=== PATIENT | male | born 1965 | race Caucasian/White ===

== ENCOUNTER 2020-09-18 00:53 | Inpatient (IN) ==
--- NOTE | 2020-09-18 01:19 | Emergency Department Note ---
Impression & Plan Acute CVA (cerebrovascular accident), ICAO (internal carotid artery occlusion) ED Provider Note Name: SULEIMAN ONOFRE Age: 54 Sex: M Arrives Via: Walk-In Informant: Patient, brother ED Provider: Herve Calzada MD Chief Complaint: Right hand weakness Impression: Acute CVA Internal Carotid artery occlusion Medical Decision Makin yr old right handed male with no recent PMH who has been heavy smoker and has family history of CVA arrives with right hand weakness as primary issue, though some speech difficulty and mild right facial droop. This has been ongoing for the last 3 days and by time of arrival there is no indication for TPA. CT head obtained reveals areas of infarct, some of which could be acute. Labs unremarkable. EKG without afib. CXR looks OK. Patient feels ok, passed swallow study by nursing and able to swallow aspirin here without difficulty. After discussion with hospitalist they requested that he have CTA head/neck obtained while awaiting admission. CTA neck with right carotid occlusion and significant left occlusion. Hospitalist aware and will manage further. Prior Medical Record and Triage/Nursing Notes reviewed by Me Additional history obtained from chart and brother Differentials:Infection, dehydration, metabolic abnormality, hypo/hyperglycemia, electrolyte disturbance, anemia, hypoxia, cardiac sources, intracerebral event, toxicologic, neurologic, as well as other pathologies. Vital Signs: reviewed and remarkable for HTN Interventions: saline lock, asa 324mg po Labs:Reviewed and remarkable for no significant abnormalities Imaging:X ray results are stated below per my interpretation: Chest: 1 view: No infiltrate, no effusion, normal cardiac border. [facility] Radiologist interpretation reviewed by me: "CT HEAD: No acute intracranial hemorrhage, extra-axial fluid collection or mass-effect. Hypoattenuation within the left inferior cerebellar hemisphere likely represents encephalomalacia from a previous infarct. Small focus of hypoattenuation involving the cortical and subcortical white matter of the left posterior frontal lobe, which includes the precentral gyrus thought to represent a small infarct, age indeterminate, though possibly acute. There are additional smaller foci of hypoattenuation in the left parietal lobe which could represent additional small infarcts. An MRI of the brain is recommended to better specify. Radiologist: Tess De La O M.D." "CTA HEAD: The intracranial right internal carotid artery is nonopacified, consistent with an occlusion with only a trickle of flow visualized within the supraclinoid right ICA likely from contralateral flow. Atherosclerotic calcifications and luminal irregularity of the cavernous and supraclinoid left ICA results in critical stenosis at the cavernous segment. The bilateral MCAs and ACAs are patent. The posterior circulation is patent. Radiologist: Tess De La O M.D." "CTA NECK: Occlusion of the right internal carotid artery extending from its origin at the carotid bulb through the visualized intracranial component. The vertebral arteries are patent. Atherosclerotic calcifications and plaque at the left carotid bulb and proximal ICA resulting in less than 50% stenosis. Atherosclerotic plaque within the distal cervical segment at the skull base resultant approximately 50% stenosis. The left common carotid artery and the brachiocephalic artery shares a common origin, a normal anatomic variant. Atherosclerotic calcifications of the aortic arch and arch vessels. Emphysematous changes within the lung apices. Radiologist: Tess De La O M.D." EKG: Cardiac Monitoring: Per My Interpretation: Indication Stroke: NSR 91 bpm, qtc 428. No Ectopy. No Ischemia. Compared to EKG 12/13/19, no significant changes. Cardiac/Tele Monitoring: Cardiac Monitoring: An Order was placed for continuous cardiac monitoring. The monitor shows a rate of 90 with a normal sinus rhythm. Consults: Dr Aayush JAVIER Hospitalist requests CTA head/neck and will admit Plan: Disposition:Hospitalization. Condition: Good History of Present Illness:54 yr old male arrives for evaluation of right hand weakness. Patient notes that he had gradual onset right arm weakness, mild confusion, slurred speech throughout day on 09/14/20. Has been stable since that afternoon. Denies headache, neck pain, falls, syncope, urinary/bowel changes, leg swelling, chest pain, palpitations, shortness of breath nor other symptoms. Denies previous history of stroke/weakness issues. He has no history of recent accidents, trauma, nor cervical manipulation. He has been on no medications. Nothing makes weakness better nor worse. Admits long history of smoking. He does drink etoh daily but denies issues with shakes/withdrawal if he doesn't drink. ROS: See above HPI for pertinent positives & negatives. A total of 10 systems reviewed and were otherwise negative. Past Medical History:None Past Surgical History:Hernia repair, Tympanostomy tubes Family History:Brother with stroke Social History:Groundskeeping Maintenance Worker currently unemployed, + smoking, + etoh use (6 beers a night, no withdrawal symptoms) Home Medications:None Allergies:NKDA Vitals:Blood Pressure: 163/114, Pulse 80, RR 18, T 36.6C, O2 98% on RA Physical Exam: GENERAL: Patient is anxious appearing and in mild distress. EYES: No scleral icterus, unremarkable pupils. ENT: Mucous membranes moist, no nasal congestion. NECK: No masses appreciated, nomeningismus, trachea is midline. RESPIRATORY: No dyspnea. Clear to auscultation and equal bilaterally. No wheeze, no rhonchi. CARDIOVASCULAR: Regular rate and rhythm.No murmurs, rubs, gallops appreciated. GASTROINTESTINAL: Abdomen soft, non-tender, no peritonitis.Bowel sounds positive.No masses appreciated. BACK: No midline tenderness, no CVA tenderness EXTREMITIES: Normal motion all extremities, no cyanosis, no edema. NEUROLOGIC: Alert and oriented, mildly slurred speech with word finding issues, right facial droop overcome with voluntary muscles, right arm weakness worse distal with ataxia, otherwise unremarkable. SKIN: No rash, no jaundice, no diaphoresis. PSYCH: Appropriate GCS: 15 ED Course: Times/Reassessments: stable findings without complaints Herve Calzada MD Past Med/Surg History Medical History (Updated 09/18/20 @ 05:49 by Herve Calzada MD) No acute medical problems Surgical History History of hernia surgery Social History Smoking Status: Current every day smoker Tobacco Type: Cigarettes Cigarettes Per Day: 20; Hx Alcohol Use: Yes Alcohol type: beer Hx Substance Use: Yes Last Used Substance: Days (ago) Last Used Substance Other:: 3 days ago Beliefs That Will Affect Care: None Current Living Situation: Family Other Information That Helps Us Care for You: No Feels Safe at Home: Yes Safety Concerns: Feels Safe At This Time Assistive Devices: None Allergies Allergies Allergy/AdvReac Type Severity Reaction Status Date / Time No Known Allergies Allergy Unverified 09/18/20 01:09 Home Meds Home Medications Medication Instructions Recorded Confirmed No Known Home Medications 12/13/19 09/18/20 Results & Data (ED) Vital Signs Vital Signs - 24 hr 09/18/20 00:56 09/18/20 01:18 09/18/20 01:20 Temperature 36.6 C Temperature Source Temporal Artery Scan Pulse Rate 114 H 92 H 91 H Pulse Rate from SpO2 Sensor 92 H 92 H Respiratory Rate 18 24 23 Blood Pressure 163/114 H 157/101 H Blood Pressure Mean 130 119 Blood Pressure Position Sitting Pulse Oximetry 98 95 95 Oxygen Delivery Method Room Air Sepsis Recent Fever Within 48 Hours No Sepsis New/Unexplained Change in Mental Status No Sepsis Action Taken by Nursing No Action Required 09/18/20 01:34 09/18/20 01:37 09/18/20 01:40 Temperature Temperature Source Pulse Rate 95 H 92 H Pulse Rate from SpO2 Sensor 91 H 92 H Respiratory Rate 17 22 Blood Pressure Blood Pressure Mean Blood Pressure Position Pulse Oximetry 96 95 Oxygen Delivery Method Room Air Sepsis Recent Fever Within 48 Hours Sepsis New/Unexplained Change in Mental Status Sepsis Action Taken by Nursing 09/18/20 01:45 09/18/20 01:50 09/18/20 02:00 Temperature Temperature Source Pulse Rate 94 H 92 H 88 Pulse Rate from SpO2 Sensor 93 H 88 Respiratory Rate 22 20 21 Blood Pressure 164/98 H 165/101 H Blood Pressure Mean 120 122 Blood Pressure Position Pulse Oximetry 80 L 96 Oxygen Delivery Method Sepsis Recent Fever Within 48 Hours Sepsis New/Unexplained Change in Mental Status Sepsis Action Taken by Nursing 09/18/20 02:01 09/18/20 02:10 09/18/20 02:15 Temperature Temperature Source Pulse Rate 86 85 83 Pulse Rate from SpO2 Sensor 86 85 Respiratory Rate 22 20 19 Blood Pressure 157/98 H Blood Pressure Mean 117 Blood Pressure Position Pulse Oximetry 96 95 Oxygen Delivery Method Sepsis Recent Fever Within 48 Hours Sepsis New/Unexplained Change in Mental Status Sepsis Action Taken by Nursing 09/18/20 02:20 09/18/20 02:30 09/18/20 02:31 Temperature Temperature Source Pulse Rate 82 82 81 Pulse Rate from SpO2 Sensor Respiratory Rate 19 17 18 Blood Pressure 143/96 H Blood Pressure Mean 111 Blood Pressure Position Pulse Oximetry Oxygen Delivery Method Sepsis Recent Fever Within 48 Hours Sepsis New/Unexplained Change in Mental Status Sepsis Action Taken by Nursing 09/18/20 02:40 09/18/20 02:47 09/18/20 02:50 Temperature Temperature Source Pulse Rate 87 89 86 Pulse Rate from SpO2 Sensor 88 89 86 Respiratory Rate 21 25 H 21 Blood Pressure 177/111 H Blood Pressure Mean 133 Blood Pressure Position Pulse Oximetry 95 97 96 Oxygen Delivery Method Sepsis Recent Fever Within 48 Hours Sepsis New/Unexplained Change in Mental Status Sepsis Action Taken by Nursing 09/18/20 03:00 09/18/20 03:21 09/18/20 03:30 Temperature Temperature Source Pulse Rate 80 88 85 Pulse Rate from SpO2 Sensor 81 85 83 Respiratory Rate 19 22 21 Blood Pressure 151/95 H 170/101 H 162/106 H Blood Pressure Mean 113 124 124 Blood Pressure Position Pulse Oximetry 94 96 99 Oxygen Delivery Method Room Air Room Air Sepsis Recent Fever Within 48 Hours Sepsis New/Unexplained Change in Mental Status Sepsis Action Taken by Nursing Laboratory Data Result diagrams: 09/18/20 01:25 09/18/20 01:25 Lab Results 09/18/20 09/18/20 09/18/20 Range/Units 01:25 01:25 01:25 WBC 8.10 (4.8-10.8) K/uL RBC 5.18 (4.7-6.1) M/uL Hgb 15.8 (14.0-18.0) g/dL Hct 44.6 (42-52) % MCV 86.1 (80-100) fL MCH 30.5 (25-34) pg MCHC 35.4 (32-36) g/dL RDW Std Deviation 42.0 (36.4-46.3) fL RDW Coeff of Elliott 13.3 (11.5-14.5) % Plt Count 229 (130-400) K/uL MPV 9.6 (7.4-10.4) fL Immature Gran % (Auto) 0.4 % Neut % (Auto) 54.9 % Lymph % (Auto) 34.7 % Stark % (Auto) 7.4 % Eos % (Auto) 2.0 % Baso % (Auto) 0.6 % Neut # (Auto) 4.45 (1.4-6.5) K/uL Lymph # (Auto) 2.81 (1.2-3.4) K/uL Stark # (Auto) 0.60 H (0.11-0.59) K/uL Eos # (Auto) 0.16 (0-0.5) K/uL Baso # (Auto) 0.05 (0-0.2) K/uL Immature Gran # (Auto) 0.03 H (0.00-0.02) K/uL PT 10.4 (9.0-12.0) Seconds INR 1.0 (0.9-1.1) APTT 27.3 (21.0-31.0) Seconds PTT Ratio 1.0 Sodium (136-145) mmol/L Potassium (3.5-5.1) mmol/L Chloride (98-107) mmol/L Carbon Dioxide (21-32) mmol/L Anion Gap (3-11) BUN (7-18) mg/dl Creatinine (0.6-1.4) mg/dl Est Cr Clr Drug Dosing ml/min Est GFR ( Amer) ml/min Est GFR (Non-Af Amer) ml/min BUN/Creatinine Ratio (10-20) Glucose (70-99) mg/dl Calcium (8.5-10.1) mg/dl Magnesium (1.8-2.4) mg/dl Total Bilirubin (0.2-1) mg/dl AST (15-37) U/L ALT (12-78) U/L Alkaline Phosphatase (45-117) U/L Troponin I (0-0.045) ng/ml Total Protein (6.4-8.2) gm/dl Albumin (3.4-5.0) gm/dl Globulin (2.5-4.0) gm/dl Albumin/Globulin Ratio (0.9-2) COVID-19 Eval Order SARS-CoV-2 (PCR) (Negative) Blood Type AB Negative Antibody Screen NEGATIVE 09/18/20 09/18/20 09/18/20 Range/Units 01:25 01:37 01:37 WBC (4.8-10.8) K/uL RBC (4.7-6.1) M/uL Hgb (14.0-18.0) g/dL Hct (42-52) % MCV (80-100) fL MCH (25-34) pg MCHC (32-36) g/dL RDW Std Deviation (36.4-46.3) fL RDW Coeff of Elliott (11.5-14.5) % Plt Count (130-400) K/uL MPV (7.4-10.4) fL Immature Gran % (Auto) % Neut % (Auto) % Lymph % (Auto) % Stark % (Auto) % Eos % (Auto) % Baso % (Auto) % Neut # (Auto) (1.4-6.5) K/uL Lymph # (Auto) (1.2-3.4) K/uL Stark # (Auto) (0.11-0.59) K/uL Eos # (Auto) (0-0.5) K/uL Baso # (Auto) (0-0.2) K/uL Immature Gran # (Auto) (0.00-0.02) K/uL PT (9.0-12.0) Seconds INR (0.9-1.1) APTT (21.0-31.0) Seconds PTT Ratio Sodium 135 L (136-145) mmol/L Potassium 4.1 (3.5-5.1) mmol/L Chloride 103 (98-107) mmol/L Carbon Dioxide 27 (21-32) mmol/L Anion Gap 5.0 (3-11) BUN 27 H (7-18) mg/dl Creatinine 1.38 (0.6-1.4) mg/dl Est Cr Clr Drug Dosing 62.9 ml/min Est GFR ( Amer) 66.7 ml/min Est GFR (Non-Af Amer) 57.6 ml/min BUN/Creatinine Ratio 19.4 (10-20) Glucose 141 H (70-99) mg/dl Calcium 8.8 (8.5-10.1) mg/dl Magnesium 2.0 (1.8-2.4) mg/dl Total Bilirubin 0.2 (0.2-1) mg/dl AST 12 L (15-37) U/L ALT 27 (12-78) U/L Alkaline Phosphatase 58 (45-117) U/L Troponin I < 0.015 (0-0.045) ng/ml Total Protein 7.0 (6.4-8.2) gm/dl Albumin 3.6 (3.4-5.0) gm/dl Globulin 3.4 (2.5-4.0) gm/dl Albumin/Globulin Ratio 1.1 (0.9-2) COVID-19 Eval Order Covid19 at [facility] SARS-CoV-2 (PCR) NEGATIVE (Negative) Blood Type Antibody Screen Administered Medications Discontinued Medications Aspirin (Aspirin Chew 324 Mg) 324 mg PO NOW STA Stop: 09/18/20 02:30 Last Admin: 09/18/20 02:40 Dose: 324 mg Documented by: [id number] Ioversol (Optiray 350 500ml) 110 ml IV ONCE ONE Stop: 09/18/20 03:12 Last Admin: 09/18/20 03:13 Dose: 110 ml Documented by: [id number] Discharge Plan Visit Data Chief Complaint: Stroke/CVA Symptoms Stated Complaint: POSSIBLE SX, RT SIDED WEAKNESS, SLURRED SPEACH ED Provider: Herve Calzada Discharge Problem: Acute CVA (cerebrovascular accident), ICAO (internal carotid artery occlusion) Patient Disposition: Admitted As Inpatient Discharge Instructions Interventions: ED Discharge Assessment Last Done: 09/18/20 04:27 Discharge Problem: ICAO (internal carotid artery occlusion) Qualifiers: Laterality: right Qualified Code(s): I65.21 - Occlusion and stenosis of right carotid artery
[2020-09-18 01:34] LABS: Basophils # (auto) 0.05 K/uL (0-0.2); Basophils % (auto) 0.6 %; Eosinophils # (auto) 0.16 K/uL (0-0.5); Hematocrit (blood only) 44.6 % (42-52); Hemoglobin 15.8 g/dL (14.0-18.0); Immature Granulocytes # (auto) 0.03 K/uL (0.00-0.02); Immature Granulocytes % (auto) 0.4 %; Lymphocytes # (auto) 2.81 K/uL (1.2-3.4); Lymphocytes % (auto) 34.7 %; Mean Corpuscular Hemoglobin 30.5 pg (25-34); Mean Corpuscular Hgb Conc 35.4 g/dL (32-36); Mean Corpuscular Volume 86.1 fL (80-100); Mean Platelet Volume 9.6 fL (7.4-10.4); Monocytes % (auto) 7.4 %; Neutrophils # (auto) 4.45 K/uL (1.4-6.5); Neutrophils % (auto) 54.9 %; Platelet Count 229 K/uL (130-400); RDW Coefficient of Variation 13.3 % (11.5-14.5); Red Blood Count 5.18 M/uL (4.7-6.1)
[2020-09-18 01:45] LABS: Partial Thromboplastin Time 27.3 Seconds (21.0-31.0); Prothrombin Time 10.4 Seconds (9.0-12.0)
[2020-09-18 01:54] LABS: Alanine Aminotransferase 27 U/L (12-78); Albumin Level 3.6 gm/dl (3.4-5.0); Aspartate Aminotransferase 12 U/L (15-37); BUN Creatinine Ratio 19.4 (10-20); Blood Urea Nitrogen 27 mg/dl (7-18); Calcium 8.8 mg/dl (8.5-10.1); Carbon Dioxide 27 mmol/L (21-32); Chloride 103 mmol/L (98-107); Creatinine Clr Calc Pharmacy 62.9 ml/min; Est GFR (African American) 66.7 ml/min; Est GFR (Non-African American) 57.6 ml/min; Glucose 141 mg/dl (70-99); Potassium 4.1 mmol/L (3.5-5.1); Sodium 135 mmol/L (136-145)
[2020-09-18 01:59] LABS: Albumin Globulin Ratio 1.1 (0.9-2); Alkaline Phosphatase 58 U/L (45-117); Bilirubin,Total 0.2 mg/dl (0.2-1); Globulin 3.4 gm/dl (2.5-4.0); Troponin I < 0.015 ng/ml (0-0.045)
[2020-09-18] MEDS ORDERED: ASPIRIN CHEW 324 MG PO STA (02:29)
--- NOTE | 2020-09-18 03:07 | History & Physical Report ---
Date of Service September 18, 2020 Assessment & Plan (1) Stroke: John Fabian is a 54-year-old male with only past medical history significant for smoking, and methamphetamine use; who presented for concern of 4 days of weakness of right upper extremity. Stroke: -Given timeline of presentation to ED with symptoms, no code stroke alert called patient did not receive TPA -CT head demonstrating no acute intracranial hemorrhage, hypoattenuation within the left inferior cerebellar hemisphere, small focus of hypoattenuation involving cortical and subcortical white matter representing age-indeterminate infarct -CTA head/neck demonstrating intracranial right internal carotid artery consistent with occlusion with minimal flow likely from contralateral flow, critical stenosis of the supraclinoid left ICA -MRI ordered -Echo ordered given both stroke and methamphetamine use -Lipids/A1c in a.m. -Started on atorvastatin 40 mg daily -No BP or IV to right upper extremity given stroke deficits -Likely will need antiplatelet medication going forward given extent of carotid artery disease -Neurology consulted as part of stroke protocol -Labetalol and hydralazine available q4h PRN for SBP >180 Smoker/methamphetamine use: -Provided smoking cessation education and counseling -Advised stoppage of methamphetamine use Diet: Regular CODE STATUS: Full code (2) Smoker: (3) Methamphetamine abuse: History of Present Illness Primary Care Provider: NO PCP John Fabian is a 54-year-old male with only past medical history significant for smoking, and methamphetamine use; who presented for concern of 4 days of weakness of right upper extremity. Had sudden onset of inability to utilize his right hand approximately 4 days ago, initially thought nothing of it did not present to the emergency room at that time. Then as this continued and persisted without much improvement decided it was not time to for him to be evaluated. Has very minimal movement of the right hand that has been continued at this time but otherwise has function of right elbow and shoulder without change from his normal. Has no difficulty with vision or visual field losses. No lightheadedness, no dizziness, no nausea, no other muscular weaknesses, no falls, no chest pain, no shortness of breath. Endorses last use of methamphetamines 2 days ago, and is a longtime smoker. Is right-handed, and works with his hands for living. Allergies Allergy/AdvReac Type Severity Reaction Status Date / Time No Known Allergies Allergy Unverified 09/18/20 01:09 Home Medications Medication Instructions Recorded Confirmed Type No Known Home Medications 12/13/19 09/18/20 History Past Med/Surg History Medical History No acute medical problems Surgical History History of hernia surgery Social History Smoking Status: Current every day smoker Tobacco Type: Cigarettes Cigarettes Per Day: 20; Hx Alcohol Use: Yes Alcohol type: beer Hx Substance Use: Yes Last Used Substance: Days (ago) Last Used Substance Other:: 3 days ago Beliefs That Will Affect Care: None Current Living Situation: Family Other Information That Helps Us Care for You: No Feels Safe at Home: Yes Safety Concerns: Feels Safe At This Time Assistive Devices: None Review of Systems Review of Systems: All systems reviewed & are unremarkable except as noted in HPI & below Physical Exam Constitutional: WD/WN, vitals as above Eyes: PERRL, conjunctivae normal, anicteric sclerae Respiratory: normal respiratory effort, lungs clear to auscultation Auscultation: no crackles, no rales, no rhonchi and no wheezes Cardiovascular: Rate/Rhythm: regular rate and regular rhythm Heart Sounds: no gallop, no murmur and no cardiac rub Vessels: normal peripheral pulses; no JVD Extremities: no edema Gastrointestinal (Abdomen): Inspection/Auscultation: normal bowel sounds; abdomen not distended Percussion/Palpation: abdomen soft; abdomen nontender and no guarding Musculoskeletal: Extremities: + abnormal strength and + limited ROM of upper extremity Right (hand) 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, finger abduction/adduction/flexion/extension, wrist flexion/extension/radial deviation/ulnar deviation Skin: no rashes, warm and dry Neurologic: deep tendon reflexes 2+ bilaterally, normal sensation to monofilament, + focal motor deficit and awake Cranial Nerves: PERRL, normal accommodation, EOM intact bilaterally, normal facial strength, tongue midline, normal hearing, able to rotate head bilaterally, able to elevate shoulders bilaterally, no nystagmus and symmetric palate elevation Psychiatric: Orientation: alert and oriented x 3 Results & Data Results & Data ([facility]) Vital Signs (Past 12 Hours) Vital Signs Temp Pulse Resp BP Pulse Ox 09/18/20 02:50 86 21 96 09/18/20 02:47 89 25 H 177/111 H 97 09/18/20 02:40 87 21 95 09/18/20 02:31 81 18 09/18/20 02:30 82 17 143/96 H 09/18/20 02:20 82 19 09/18/20 02:15 83 19 157/98 H 09/18/20 02:10 85 20 95 09/18/20 02:01 86 22 96 09/18/20 02:00 88 21 165/101 H 96 09/18/20 01:50 92 H 20 80 L 09/18/20 01:45 94 H 22 164/98 H 09/18/20 01:40 92 H 22 95 09/18/20 01:37 95 H 17 96 09/18/20 01:20 91 H 23 95 09/18/20 01:18 92 H 24 157/101 H 95 09/18/20 00:56 36.6 C 114 H 18 163/114 H 98 Laboratory Results 09/18/20 09/18/20 09/18/20 Range/Units 01:37 01:37 01:25 WBC (4.8-10.8) K/uL RBC (4.7-6.1) M/uL Hgb (14.0-18.0) g/dL Hct (42-52) % MCV (80-100) fL MCH (25-34) pg MCHC (32-36) g/dL RDW Std Deviation (36.4-46.3) fL RDW Coeff of Elliott (11.5-14.5) % Plt Count (130-400) K/uL MPV (7.4-10.4) fL Immature Gran % (Auto) % Neut % (Auto) % Lymph % (Auto) % [place] % (Auto) % Eos % (Auto) % Baso % (Auto) % Neut # (Auto) (1.4-6.5) K/uL Lymph # (Auto) (1.2-3.4) K/uL [place] # (Auto) (0.11-0.59) K/uL Eos # (Auto) (0-0.5) K/uL Baso # (Auto) (0-0.2) K/uL Immature Gran # (Auto) (0.00-0.02) K/uL PT (9.0-12.0) Seconds INR (0.9-1.1) APTT (21.0-31.0) Seconds PTT Ratio Sodium 135 L (136-145) mmol/L Potassium 4.1 (3.5-5.1) mmol/L Chloride 103 (98-107) mmol/L Carbon Dioxide 27 (21-32) mmol/L Anion Gap 5.0 (3-11) BUN 27 H (7-18) mg/dl Creatinine 1.38 (0.6-1.4) mg/dl Est Cr Clr Drug Dosing 62.9 ml/min Est GFR ( Amer) 66.7 ml/min Est GFR (Non-Af Amer) 57.6 ml/min BUN/Creatinine Ratio 19.4 (10-20) Glucose 141 H (70-99) mg/dl Calcium 8.8 (8.5-10.1) mg/dl Magnesium 2.0 (1.8-2.4) mg/dl Total Bilirubin 0.2 (0.2-1) mg/dl AST 12 L (15-37) U/L ALT 27 (12-78) U/L Alkaline Phosphatase 58 (45-117) U/L Troponin I < 0.015 (0-0.045) ng/ml Total Protein 7.0 (6.4-8.2) gm/dl Albumin 3.6 (3.4-5.0) gm/dl Globulin 3.4 (2.5-4.0) gm/dl Albumin/Globulin Ratio 1.1 (0.9-2) COVID-19 Eval Order Covid19 at [facility] SARS-CoV-2 (PCR) NEGATIVE (Negative) Blood Type Antibody Screen 09/18/20 09/18/20 09/18/20 Range/Units 01:25 01:25 01:25 WBC 8.10 (4.8-10.8) K/uL RBC 5.18 (4.7-6.1) M/uL Hgb 15.8 (14.0-18.0) g/dL Hct 44.6 (42-52) % MCV 86.1 (80-100) fL MCH 30.5 (25-34) pg MCHC 35.4 (32-36) g/dL RDW Std Deviation 42.0 (36.4-46.3) fL RDW Coeff of Elliott 13.3 (11.5-14.5) % Plt Count 229 (130-400) K/uL MPV 9.6 (7.4-10.4) fL Immature Gran % (Auto) 0.4 % Neut % (Auto) 54.9 % Lymph % (Auto) 34.7 % [place] % (Auto) 7.4 % Eos % (Auto) 2.0 % Baso % (Auto) 0.6 % Neut # (Auto) 4.45 (1.4-6.5) K/uL Lymph # (Auto) 2.81 (1.2-3.4) K/uL [place] # (Auto) 0.60 H (0.11-0.59) K/uL Eos # (Auto) 0.16 (0-0.5) K/uL Baso # (Auto) 0.05 (0-0.2) K/uL Immature Gran # (Auto) 0.03 H (0.00-0.02) K/uL PT 10.4 (9.0-12.0) Seconds INR 1.0 (0.9-1.1) APTT 27.3 (21.0-31.0) Seconds PTT Ratio 1.0 Sodium (136-145) mmol/L Potassium (3.5-5.1) mmol/L Chloride (98-107) mmol/L Carbon Dioxide (21-32) mmol/L Anion Gap (3-11) BUN (7-18) mg/dl Creatinine (0.6-1.4) mg/dl Est Cr Clr Drug Dosing ml/min Est GFR ( Amer) ml/min Est GFR (Non-Af Amer) ml/min BUN/Creatinine Ratio (10-20) Glucose (70-99) mg/dl Calcium (8.5-10.1) mg/dl Magnesium (1.8-2.4) mg/dl Total Bilirubin (0.2-1) mg/dl AST (15-37) U/L ALT (12-78) U/L Alkaline Phosphatase (45-117) U/L Troponin I (0-0.045) ng/ml Total Protein (6.4-8.2) gm/dl Albumin (3.4-5.0) gm/dl Globulin (2.5-4.0) gm/dl Albumin/Globulin Ratio (0.9-2) COVID-19 Eval Order SARS-CoV-2 (PCR) (Negative) Blood Type AB Negative Antibody Screen NEGATIVE Diagnostic Findings CT HEAD: No acute intracranial hemorrhage, extra-axial fluid collection or mass-effect. Hypoattenuation within the left inferior cerebellar hemisphere likely represents encephalomalacia from a previous infarct. Small focus of hypoattenuation involving the cortical and subcortical white matter of the left posterior frontal lobe, which includes the precentral gyrus thought to represent a small infarct, age indeterminate, though possibly acute. There are additional smaller foci of hypoattenuation in the left parietal lobe which could represent additional small infarcts. An MRI of the brain is recommended to better specify. Radiologist: Tess De La O M.D. CTA HEAD: The intracranial right internal carotid artery is nonopacified, consistent with an occlusion with only a trickle of flow visualized within the supraclinoid right ICA likely from contralateral flow. Atherosclerotic calcifications and luminal irregularity of the cavernous and supraclinoid left ICA results in critical stenosis at the cavernous segment. The bilateral MCAs and ACAs are patent. The posterior circulation is patent. Radiologist: Tess De La O M.D. CTA NECK: Occlusion of the right internal carotid artery extending from its origin at the carotid bulb through the visualized intracranial component. The vertebral arteries are patent. Atherosclerotic calcifications and plaque at the left carotid bulb and proximal ICA resulting in less than 50% stenosis. Atherosclerotic plaque within the distal cervical segment at the skull base resultant approximately 50% stenosis. The left common carotid artery and the brachiocephalic artery shares a common origin, a normal anatomic variant. Atherosclerotic calcifications of the aortic arch and arch vessels. Emphysematous changes within the lung apices. Radiologist: Tess Abadie, M.D. Supervising Physician Co-Signing Physician Notes Attending addendum: I have physically seen this patient, have supervised the medical residents activities, and agree with the H&P unless as otherwise noted. Assessment and Plan: Right-sided CVA- Symptoms began 4 days prior to arrival, therefore not candidate for TPA Stroke without TPA order set CT head shows old left inferior cerebellar stroke. Age-indeterminate infarcts involving cortical and subcortical white matter CTA head and neck: Occlusion of right ICA. Critical stenosis of supraclinoid left ICA MRI brain ordered and pending Complete echocardiogram to be performed in a.m. Check a fasting liver panel and hemoglobin A1c Start high-dose statin atorvastatin 40 mg daily Consult neurology Tobacco use/methamphetamine use- Counseling for above Remaining orders and notations as noted Resident Activity Tracking Resident Involvement: Resident Care Provided Care Provided: Adult [facility] Medicine
[2020-09-18] MEDS ORDERED: OPTIRAY 350 500ml IV ONE (03:11)
[2020-09-18] MEDS ORDERED: hydrALAZINE HCL 20 MG/ML VIAL IV PRN ×2 (03:40→04:55)
[2020-09-18] MEDS ORDERED: LABETALOL HCL IV 5 MG/ML 20ML IV PRN ×2 (03:40→04:55)
[2020-09-18] MEDS ORDERED: PHARMACIST DISCHARGE MED REC CONSULT PRN (04:46)
[2020-09-18] MEDS ORDERED: ALUMINUM/MAGNESIUM SUSP 30 ML UDC PO PRN (04:46)
[2020-09-18] MEDS ORDERED: ACETAMINOPHEN 325 MG TAB PO PRN (04:46)
[2020-09-18] MEDS ORDERED: MAGNESIUM HYDROXIDE SUSP 30 ML UDC PO PRN (04:46)
[2020-09-18] MEDS ORDERED: ONDANSETRON INJ 2 MG/ML 2 ML VIAL IV PRN (04:46)
[2020-09-18] MEDS ORDERED: POLYETHYLENE (MIRALAX) 17 GM PACK PO PRN (04:46)
--- NOTE | 2020-09-18 07:09 | CT Scan Report ---
CTA ANGIOGRAPHY OF THE HEAD CLINICAL HISTORY: stroke COMPARISON STUDY: Head CT September 18, 2020. TECHNIQUE: Helical axial images of the head were obtained following uneventful intravenous administr ation of 110 cc of Optiray. Sagittal and coronal reconstructions were viewed as well as maximal inten sity projections on an independent 3-D workstation. Automated exposure control was utilized for the study. A dose lowering technique was utilized adhering to the principles of ALARA. FINDINGS: Encephalomalacia within the inferior left cerebellar hemisphere favors old infarct. Age ind eterminate infarcts within the left parietal frontal lobes are better depicted on the head CT perform ed earlier today. No acute intracranial hemorrhage, midline shift or mass effect is present. There ar e postoperative findings within the sinuses. The right internal carotid artery is occluded with dista l reconstitution at the level of the right supraclinoid ICA which is diminutive. The right M1, M2, A1 and A2 segments are patent. There is extensive plaque within visualized portions of the left interna l carotid artery with multifocal stenoses. There is severe critical stenosis of the left cavernous ca rotid. The left M1, M2, A1 and A2 segments are patent. No abrupt cut off is identified within the pos terior intracranial circulation. There is no intracranial aneurysm. IMPRESSION: 1. Extensive atherosclerotic plaque. Occluded right internal carotid artery with reconstitution at th e level of the right supraclinoid ICA which is diminutive. Patent bilateral M1, M2, A1 and A2 branche s. 2. Severe/critical stenosis of the left cavernous carotid due to plaque. 3. No intracranial aneurysm. ACT 112: Negative or not required by law. Electronically signed by: Adebayo Metzger M.D. 09/18/2020 7:07 AM
--- NOTE | 2020-09-18 07:19 | CT Scan Report ---
HEAD CT NONCONTRAST CT DOSE: 537.48 mGy.cm HISTORY: Stroke Like Symptoms TECHNIQUE: Multiaxial CT images of the head were performed without the use of intravenous contrast. A utomated exposure control was utilized for this study. A dose lowering technique was utilized adheri ng to the principles of ALARA. Comparison: None. Findings: The paranasal sinuses and mastoid air cells are clear. The calvarium and skull base are int act. There is no mass, hematoma, or midline shift. Focal area of encephalomalacia within the left inf erior cerebellar hemisphere likely secondary to an old infarct. There is an old lacunar infarct withi n the right cerebellar hemisphere. Small foci of hypoattenuation involving the cortical and subcortic al white matter of the left posterior frontal lobe and left parietal lobe suggestive of acute to suba cute infarcts. Impression: 1. Small foci of hypoattenuation within the left posterior frontal lobe and left parietal lobe sugges tive of acute to subacute infarcts. 2. Old cerebellar infarcts. ACT 112: Negative or not required by law. Electronically signed by: Tavo Fonseca M.D. 09/18/2020 7:17 AM
--- NOTE | 2020-09-18 07:24 | CT Scan Report ---
NECK CTA HISTORY: Stroke symptoms. TECHNIQUE: Multiaxial CT images of the neck were performed following the intravenous administration o f contrast to evaluate the major cervical vessels. Maximum intensity projection images were also obta ined. All measurements were calculated based on NASCET criteria. A dose lowering technique was utili zed adhering to the principles of ALARA. COMPARISON STUDY: None. FINDINGS: The aortic arch is patent. Focal narrowing of approximately 40% within the proximal left gupta bclavian artery due to the atherosclerotic plaque. Mild focal narrowing within the proximal right maggie tebral artery at the C6-C7 levels. The left vertebral artery is widely patent. There is complete occl usion of the right internal carotid artery. Moderate stenosis of approximately 70% at the takeoff of the left internal carotid artery. There is also 70% focal stenosis at the distal cervical left internet ecommerce specialist al carotid artery. There is also severe/critical stenosis within the left cavernous carotid. This is better appreciated on the same day head CTA. IMPRESSION: 1. Complete occlusion of the right internal carotid artery. 2. Mild narrowing within the proximal right vertebral artery. 3. Focal areas of up to 70% stenosis at the takeoff of the left internal carotid artery and at the di stal left cervical internal carotid artery near the skull base. There is also high-grade/critical anand nosis within the cavernous segment left internal carotid artery which is better appreciated on the sa day head CTA. ACT 112: Negative or not required by law. Electronically signed by: Tavo Fonseca M.D. 09/18/2020 7:22 AM
--- NOTE | 2020-09-18 09:04 | XRay Report ---
ORBIT RADIOGRAPHS 3 VIEWS HISTORY: pre-MRI screening. COMPARISON: CTA of the head September 18, 2020. FINDINGS: There are no radiopaque foreign bodies identified within the orbits. IMPRESSION: No radiopaque foreign bodies identified within the orbits. ACT 112: Negative or not required by law. Electronically signed by: Adebayo Metzger M.D. 09/18/2020 9:02 AM
[2020-09-18] MEDS: ATORVASTATIN 40 MG TAB PO SCH (09:18)
--- NOTE | 2020-09-18 10:04 | Neurology Consultation ---
Date of Consultation September 18, 2020 Assessment & Plan (1) Acute CVA (cerebrovascular accident): Probable acute ischemic stroke involving the left cerebral hemisphere, likely left MCA territory, resulting in a mild to moderate right hemiparesis, face and arm greater than leg. Has notable loss of land appraiser strength for the right hand. Very mild dysarthria, no aphasia. Patient has significant extracranial and intracranial atherosclerotic disease with a complete occlusion of the right internal carotid artery and up to 70% stenosis at the takeoff of the left internal carotid artery, distal left cervical internal carotid artery, and high- grade/critical stenosis within the cavernous segment of the left internal carotid artery. Patient brain MRI is pending. He does have evidence of several chronic cerebellar infarcts as well, but without obvious clinical deficits. Patient continues to abuse methamphetamine. His blood pressure has been notably elevated. Cigarette smoking is also a notable risk factor for this patient. Otherwise, his past medical history is largely unknown as he does not see physicians regularly. Would recommend completion of brain MRI to further characterize the suspected acute ischemic infarct to the left cerebral hemisphere. Would recommend a fasting lipid panel. Continue medical management of hypertension. Systolic blood pressure goal 140 to 160 mmHg acutely. Given degree of observed atherosclerotic disease, patient should be on a statin, agree with Lipitor as started. Also agree with aspirin 81 mg/day as started. Abstinence from methamphetamines was stressed. Patient will likely require additional support/counseling. We will check a transthoracic echocardiogram with bubble study. There would be no surgical intervention for the completely occluded right internal carotid artery. However, the left internal carotid artery does have multifocal severe stenosis. However, the lesions near the skull base and within the cavernous segment of the left internal carotid artery may not be addressable with endarterectomy. Stenting may be an option for this patient. Would be worthwhile to obtain a vascular surgery consultation for an opinion regarding this issue. He will likely need a referral to a tertiary center. Would also consider obtaining mobile cardiac outpatient telemetry. History of Present Illness Reason for Consultation: Stroke Requesting Physician: Duglas Heredia MD Attending Physician: Ness Lenz MD History of Present Illness The patient is a 54-year-old male with a history of tobacco and methamphetamine abuse who presented to the emergency department yesterday with a complaint of right hand weakness that began 3 days prior and has been fairly persistent. Patient is also aware of mild droopiness of the right lower face and also complains of some mild associated change in his voice or speech. He is right- handed. No difficulty with word finding or language comprehension, however. Denies experiencing any weakness or difficulty with the right leg. Reports significant land appraiser weakness involving the right hand. No associated sensory loss. Again, symptoms have been persistent for the past 3 days, fairly stable without significant improvement or worsening. Patient has undergone initial imaging in the emergency department including CT of the head and CT angiography of the head and neck. The head CT reveals a chronic infarct within both the left and right cerebellar hemisphere as well as possible subacute infarcts within the posterior left frontal lobe and left parietal lobe. CTA of the head reveals extensive atherosclerotic plaque with an occluded right internal carotid artery, with reconstitution at the level of the right supraclinoid internal carotid artery which is diminutive. There is severe/critical stenosis of the left cavernous carotid due to plaque. CTA of the neck reveals complete occlusion of the right internal carotid artery, mild narrowing of the proximal right vertebral artery, and focal areas of up to 70% stenosis at the takeoff of the left internal carotid artery and at the distal left cervical internal carotid artery near the skull base. The high-grade left cavernous segment stenosis was again seen. I reviewed the images as well as the radiologist interpretation of these tests and agree. The patient denies a prior history of stroke. He does not take any prescription medications as an outpatient. Family history noncontributory Allergies Allergy/AdvReac Type Severity Reaction Status Date / Time No Known Allergies Allergy Unverified 09/18/20 01:09 Home Medications Medication Instructions Recorded Confirmed Type No Known Home Medications 12/13/19 09/18/20 History Patient History Medical History No acute medical problems Surgical History History of hernia surgery Social History Smoking Status: Current every day smoker Tobacco Type: Cigarettes Cigarettes Per Day: 20; Hx Alcohol Use: Yes Alcohol type: beer Hx Substance Use: Yes Last Used Substance: Days (ago) Last Used Substance Other:: 3 days ago Beliefs That Will Affect Care: None Current Living Situation: Family Other Information That Helps Us Care for You: No Feels Safe at Home: Yes Safety Concerns: Feels Safe At This Time Assistive Devices: None Review of Systems Constitutional: no fever and no chills Eyes: no blind spots and no diplopia Ear, Nose, Mouth, Throat: no hearing loss Respiratory: no cough and no dyspnea Cardiovascular: no chest pain and no palpitations Gastrointestinal: no nausea and no vomiting Genitourinary: no dysuria Musculoskeletal: no myalgia Integumentary: no rash and no lesions Neurologic: as per Subjective / HPI and + localized weakness; no tremor(s) and no headache(s) Psychiatric: no depression and no anxiety Hematologic / Lymphatic: no easy bleeding and no easy bruising Exam (Neuro) Constitutional: well developed and well nourished; no acute distress Eyes: normal visual allred by confrontation, PERRL, normal accommodation and EOM intact bilaterally; no fundoscopic abnormality, no nystagmus and no papilledema Cardiovascular: Vessels: normal carotid upstroke; no carotid bruit Neurologic: Oriented to:: Person, Place and Time Memory: Short Term Intact and Remote Intact Attention: Span Intact and Concentration Intact Language: Naming Objects and Repeating Phrases Speech Fluency: Dysarthria (Slight dysarthria noted) Speech Aphasia: negative Aphasia Fund of Knowledge: Current Events, Past History and Vocabulary Cranial Nerves: Normal II (Visual allred full to confrontation, visual acuity normal), III, IV, (Pupils equal round reactive to light and accommodation, eye movements normal), V (Facial sensation intact), VIII (Hearing intact), IX, X (Palate elevates to midline), XI (Shoulder shrug intact) and XII (Tongue protrudes to midline); Abnorm VII (There is mild weakness of the right lower facial musculature) Motor Strength: Normal Lower Extremities and Pronator Drift Laterality: Right; negative Normal Upper Extremities (Mild to moderate weakness of the right upper extremity noted with at least moderate weakness of land appraiser strength for the right hand. Patient fixes on the right with arm roll.) Motor Tone: Normal Lower Extremities and Normal Upper Extremities Muscle Bulk/Involuntary Movements: No Involuntary Movements; negative Muscle Atrophy Sensation: Light Touch In tact, Pain/Temperature Intact, Vibration Intact and Proprioception Intact Coordination: Normal and Finger-Nose Abnormal Laterality: Right; negative Limited Balance, Dysdiadochokinesia and Heel-Crowell Abnormal Deep Tendon Reflexes: Rt Triceps: 3+, Lt Triceps: 2+, Rt Biceps: 3+, Lt Biceps: 2+, Rt Brachioradialis: 3+, Lt Brachioradialis: 2+, Rt Patellar: 2+, Lt Patellar: 2+, Rt Ankle: 2+ and Lt Ankle: 2+ Special Tests: negative Babinski Present Gait: Normal Station and Gait Results & Data ([facility]) Vital Signs (Past 12 Hours) Vital Signs Temp Pulse Pulse Resp BP BP Pulse Ox 09/18/20 07:26 36.5 C 78 19 164/95 H 95 09/18/20 04:48 36.4 C L 86 18 175/96 H 96 09/18/20 04:00 79 20 152/94 H 96 09/18/20 03:30 85 21 162/106 H 99 09/18/20 03:21 88 22 170/101 H 96 09/18/20 03:00 80 19 151/95 H 94 09/18/20 02:50 86 21 96 09/18/20 02:47 89 25 H 177/111 H 97 09/18/20 02:40 87 21 95 09/18/20 02:31 81 18 09/18/20 02:30 82 17 143/96 H 09/18/20 02:20 82 19 09/18/20 02:15 83 19 157/98 H 09/18/20 02:10 85 20 95 09/18/20 02:01 86 22 96 09/18/20 02:00 88 21 165/101 H 96 09/18/20 01:50 92 H 20 80 L 09/18/20 01:45 94 H 22 164/98 H 09/18/20 01:40 92 H 22 95 09/18/20 01:37 95 H 17 96 09/18/20 01:20 91 H 23 95 09/18/20 01:18 92 H 24 157/101 H 95 09/18/20 00:56 36.6 C 114 H 18 163/114 H 98 Laboratory Results WBC 8.10, hemoglobin 15.8, hematocrit 44.6, platelet count 229, sodium 135, potassium 4.1, BUN 27, creatinine 1.38, glucose 141, calcium 8.8, magnesium 2.0, AST 12, ALT 27, troponin less than 0.015 Diagnostic Findings Imaging including CT of the head and CT angiography of the head and neck are as described in the history of present illness. I reviewed the images as well as the radiologist's interpretation of these tests. An electrocardiogram reveals a normal sinus rhythm, possible left atrial enlargement, 91 bpm. Coding Level of Care Code 97900 Initial In Care Lvl 3 Diagnoses Acute CVA (cerebrovascular accident) I63.9
[2020-09-18] MEDS ORDERED: GADOBUTROL 65ML VIAL IV ONE (13:47)
--- NOTE | 2020-09-18 14:45 | Magnetic Resonance Report ---
Brain MRI WITH AND WITHOUT CONTRAST HISTORY: Right arm numbness and slurred speech. TECHNIQUE: Multiplanar multisequence MRI of the brain was performed both before and after the intrave nous administration of contrast. COMPARISON STUDY: Head CT 09/18/2020. FINDINGS: Multiple small scattered foci of restricted diffusion seen within the left posterior fronta l lobe and left parietal lobe consistent with acute to subacute embolic infarcts. Small foci of encep halomalacia with surrounding T2 signal within the right posterior frontal lobe and right occipital lo be with equivocal restricted diffusion. This favors an additional subacute to chronic embolic infarct s. The midline structures are intact. Mild atrophy and microvascular ischemic changes are noted. Scat tered small focal areas of edema at the acute infarcts is also noted. No significant mass effect or m idline shift. Focal area of encephalomalacia within the left inferior cerebellar hemisphere consisten t with an old infarct. There are also old lacunar infarcts within the bilateral cerebellar hemisphere s. Mild mucosal thickening within the left maxillary sinus. The mastoid air cells are clear. Absent f low void within the right internal carotid artery consistent with the known occlusion. Small focal ar eas of enhancement within the left posterior frontal and parietal lobes correspond to the areas of gupta bacute infarct. IMPRESSION: 1. Multiple acute to subacute embolic infarcts within the left posterior frontal lobe and left pariet al lobe corresponding to the CT abnormality. 2. Additional punctate foci of abnormal signal within the right posterior frontal lobe and right occi pital lobe favor subacute to chronic embolic infarcts. 3. Old infarcts as described above. 4. Redemonstration of the occluded right internal carotid artery. 5. A 2-3 month brain MRI follow-up recommended to ensure resolution of the foci of enhancement at the expected location of the left subacute embolic infarcts. ACT 112: Negative or not required by law. Electronically signed by: Tavo Fonseca M.D. 09/18/2020 2:44 PM
--- NOTE | 2020-09-18 15:09 | Electrocardiogram Report ---
Test Reason : Blood Pressure : / mmHG Vent. Rate : 091 BPM Atrial Rate : 091 BPM P-R Int : 142 ms QRS Dur : 084 ms QT Int : 348 ms P-R-T Axes : 036 -02 045 degrees QTc Int : 428 ms Normal sinus rhythm Possible Left atrial enlargement Borderline ECG When compared with ECG of 13-DEC-2019 02:26, No significant change was found Confirmed by Mekhi Zhang ([id number]) on 09/18/2020 3:09:13 PM Referred By: REFERRED SELF Confirmed By:Vitaly Zhang
--- NOTE | 2020-09-18 16:41 | History & Physical Bridge Note ---
Date of Service September 18, 2020 History & Physical Bridge Note I have examined the patient, reviewed the History & Physical and in the interval since the performance of the History & Physical I have noted the following changes of clinical significance: Pt reports no new symptoms. Still with weakness in right hand and forearm,some very mild speech issues. Denies headache, no CP or SOB, no nausea. He apparently left the floor and was missing for a while today and then came back in on his own accord and said he went out in the parking lot to smoke a cigarette. He is willing to try a nicotine patch instead. Reviewed Neuro consult and MRI with multiple strokes. Awaiting Vascular Surgery opinion but it seems he needs Neurovascular consultation at [place]. Question is urgent vs as an outpt
[2020-09-18] MEDS: NICOTINE 14 MG/24 HR PATCH TD SCH (17:22)
--- NOTE | 2020-09-19 04:44 | Billing Data ---
Date of Service September 19, 2020 Coding Level of Care Code 91900 Initial Inpt Care Lvl 3
[2020-09-19 07:48] LABS: Basophils # (auto) 0.04 K/uL (0-0.2); Basophils % (auto) 0.6 %; Eosinophils % (auto) 2.8 %; Hematocrit (blood only) 48.2 % (42-52); Immature Granulocytes # (auto) 0.01 K/uL (0.00-0.02); Immature Granulocytes % (auto) 0.1 %; Lymphocytes # (auto) 3.06 K/uL (1.2-3.4); Lymphocytes % (auto) 42.6 %; Mean Corpuscular Hemoglobin 30.6 pg (25-34); Mean Corpuscular Hgb Conc 35.3 g/dL (32-36); Mean Corpuscular Volume 86.8 fL (80-100); Mean Platelet Volume 9.8 fL (7.4-10.4); Monocytes # (auto) 0.54 K/uL (0.11-0.59); Monocytes % (auto) 7.5 %; Neutrophils # (auto) 3.33 K/uL (1.4-6.5); Neutrophils % (auto) 46.4 %; Platelet Count 239 K/uL (130-400); RDW Coefficient of Variation 13.4 % (11.5-14.5); RDW Standard Deviation 42.6 fL (36.4-46.3); Red Blood Count 5.55 M/uL (4.7-6.1); White Blood Count 7.18 K/uL (4.8-10.8)
[2020-09-19] MEDS: NICOTINE 14 MG/24 HR PATCH TD SCH (07:58)
[2020-09-19] MEDS: ATORVASTATIN 40 MG TAB PO SCH (07:58)
[2020-09-19 08:08] LABS: BUN Creatinine Ratio 22.3 (10-20); Est GFR (African American) 89.7 ml/min; Est GFR (Non-African American) 77.4 ml/min; Potassium 4.1 mmol/L (3.5-5.1)
[2020-09-19 08:55] LABS: Estimated Average Glucose 143 mg/dl; Hemoglobin A1C 6.6 % (4.5-5.6)
[2020-09-19] MEDS ORDERED: ASPIRIN 81 MG ECTAB PO SCH (09:00)
--- NOTE | 2020-09-19 10:00 | Consultation ---
Date of Consultation September 19, 2020 Assessment & Plan (1) Carotid stenosis, bilateral: Pt with R ICA chronic occlusion and severe stenosis of supraclinoid portion of L ICA, with more moderate stenosis of cervical ICA, and acute L hemispheric CVA. Pt discussed with Dr Barnes, recommends eval at tertiary center with neurointerventional radiology for possible stenting. Pt understands and is agreeable to be seen at [facility]. History of Present Illness Reason for Consultation: ICA stenosis, CVA Attending Physician: Ness Lenz MD History of Present Illness 54 yo m without significant medical hx d/t no regular primary care, admitted with acute L hemispheric CVA and noted to have significant BL ICA stenosis. Pt states he noted R hand weakness a few days ago that did not resolve, so he came to [facility] for eval. [place] a little weak in R leg and noted some difficulty speaking, but all sx are improving at this time. Pt denies fever, recent illness, chest pain, palpitations, heart racing, SOB, HERNANDEZ, abd pain, N/V, rest pain, claudication, ulcerations, other complaints. CTA neck demonstrates R ICA occlusion which appears chronic, and severe L ICA stenosis in cervical and intracranial portions. MRI brain demonstrates acute/subacute L hemispheric infarcts. Patient was seen, examined, and chart reviewed. Agree with exam and treatment plan of the Vascular PA. There is no procedure that needs to be done for the occluded carotid. The distal left internal carotid stenosis needs to be evaluated by a ne urointerventionalist to see if this needs to be treated. If it does the stenosis of the left internal carotid origin could be treated at the same time. Thank you very much for letting us participate in the care of this patient. Allergies Allergy/AdvReac Type Severity Reaction Status Date / Time No Known Allergies Allergy Unverified 09/18/20 01:09 Home Medications Medication Instructions Recorded Confirmed Type No Known Home Medications 12/13/19 09/18/20 History Patient History Medical History (Updated 09/19/20 @ 09:58 by Erinn Castellano PA-C) Carotid stenosis, bilateral No acute medical problems Surgical History History of hernia surgery Social History Smoking Status: Current every day smoker Tobacco Type: Cigarettes Cigarettes Per Day: 20; Hx Alcohol Use: Yes Alcohol type: beer Hx Substance Use: Yes Last Used Substance: Days (ago) Last Used Substance Other:: 3 days ago Beliefs That Will Affect Care: None Current Living Situation: Family Other Information That Helps Us Care for You: No Feels Safe at Home: Yes Safety Concerns: Feels Safe At This Time Assistive Devices: None Review of Systems Review of Systems: All systems reviewed & are unremarkable except as noted in HPI & below Physical Exam Constitutional: WD/WN, vitals as above + disheveled, cooperative and comfortable; not in distress Eyes: PERRL, conjunctivae normal, anicteric sclerae ENMT: Ears: no hearing impairment Neck: trachea midline Respiratory: normal respiratory effort, lungs clear to auscultation no respiratory distress Auscultation: + diminished lung sounds (coarse breath sounds) Cardiovascular: Rate/Rhythm: regular rate and regular rhythm Vessels: + carotid bruit, femoral pulses present, posterior tibial pulses present, dorsalis pedis pulses present and radial pulses present; + abnormal peripheral pulses Extremities: normal capillary refill; no edema Gastrointestinal (Abdomen): normal bowel sounds, soft, nontender, no hepatosplenomegaly Musculoskeletal: Extremities: extremities normal to inspection and + abnormal strength (LUE/LLE 5/5, RUE 2/5 RLE 4/5) Skin: no rashes, warm and dry Neurologic: moves all extremities, + focal motor deficit (RUE weakness) and awake; not confused Psychiatric: A+Ox3, euthymic affect Results & Data ([facility]) Vital Signs (Past 12 Hours) Vital Signs Temp Pulse Pulse Resp BP Pulse Ox 09/19/20 07:07 36.6 C 77 18 152/99 H 96 09/19/20 04:26 36.6 C 79 19 138/96 92 09/19/20 01:45 68 09/19/20 00:13 37.0 C 86 18 129/86 96
[2020-09-19] MEDS ORDERED: STROKE PATIENT DISCHARGE STA (13:50)
--- NOTE | 2020-09-19 13:58 | Discharge Summary ---
Date of Service September 19, 2020 Admission HPI Per Admitting Provider John Fabian is a 54-year-old male with only past medical history significant for smoking, and methamphetamine use; who presented for concern of 4 days of weakness of right upper extremity. Had sudden onset of inability to utilize his right hand approximately 4 days ago, initially thought nothing of it did not present to the emergency room at that time. Then as this continued and persisted without much improvement decided it was not time to for him to be evaluated. Has very minimal movement of the right hand that has been continued at this time but otherwise has function of right elbow and shoulder without c hange from his normal. Has no difficulty with vision or visual field losses. No lightheadedness, no dizziness, no nausea, no other muscular weaknesses, no falls, no chest pain, no shortness of breath. Endorses last use of methamphetamines 2 days ago, and is a longtime smoker. Is right-handed, and works with his hands for living. Principal Diagnosis Acute ischemic CVA, Right upper extremity weakness, Methamphetamine abuse, EtOH abuse, Diabetes mellitus, Severe carotid artery stenosis Discharge Exam Constitutional WD/WN, vitals as above Eyes + anicteric sclerae Neck trachea midline, no thyromegaly Respiratory normal respiratory effort, lungs clear to auscultation Cardiovascular RRR, no murmur, no edema Chest (Breasts) Chest: normal inspection of chest Gastrointestinal (Abdomen) normal bowel sounds, soft, nontender, no hepatosplenomegaly Musculoskeletal Extremities: extremities normal to inspection; no cyanosis and no clubbing Skin no rashes, warm and dry Neurologic awake + 3/5 strength in R hand and wrist flexion/extension, 4/5 strength in R biceps/triceps, deltoid otherwise 5/5 strength throughout Sensation intact throughout to lt touch DTRs 2+ and symmetric bilat +pronator drift on RUE Psychiatric A+Ox3, euthymic affect Lymphatic no lymphedema Discharge Data Allergies Allergy/AdvReac Type Severity Reaction Status Date / Time No Known Allergies Allergy Unverified 09/18/20 01:09 Consultations 09/18/20 02:29 ED Decision to Admit Stat 09/18/20 04:46 Consult Neurology Routine 09/18/20 13:26 Consult Vascular Surgery Routine Ordered Studies 09/18/20 01:15 CT head/brain wo con Urgent 09/18/20 02:43 CT angio head w con Urgent CT angio neck with con Urgent 09/18/20 04:46 MR brain wo/w con Routine Head CT 09/18/20 01:[address] DOSE: 537.48 mGy.cm HISTORY: Stroke Like Symptoms TECHNIQUE: Multiaxial CT images of the head were performed without the use of intravenous contrast. Automated exposure control was utilized for this study. A dose lowering technique was utilized adhering to the principles of ALARA. Comparison: None. Findings: The paranasal sinuses and mastoid air cells are clear. The calvarium and skull base are intact. There is no mass, hematoma, or midline shift. Focal area of encephalomalacia within the left inferior cerebellar hemisphere likely secondary to an old infarct. There is an old lacunar infarct within the right cerebellar hemisphere. Small foci of hypoattenuation involving the cortical and subcortical white matter of the left posterior frontal lobe and left parietal lobe suggestive of acute to subacute infarcts. Impression: 1. Small foci of hypoattenuation within the left posterior frontal lobe and left parietal lobe suggestive of acute to subacute infarcts. 2. Old cerebellar infarcts. ACT 112: Negative or not required by law. Electronically signed by: Tavo Fonseca M.D. 09/18/2020 7:17 AM Head CTA 09/18/20 02:43 CTA ANGIOGRAPHY OF THE HEAD CLINICAL HISTORY: stroke COMPARISON STUDY: Head CT September 18, 2020. TECHNIQUE: Helical axial images of the head were obtained following uneventful intravenous administration of 110 cc of Optiray. Sagittal and coronal reconstructions were viewed as well as maximal intensity projections on an independent 3-D workstation. Automated exposure control was utilized for the study. A dose lowering technique was utilized adhering to the principles of ALARA. FINDINGS: Encephalomalacia within the inferior left cerebellar hemisphere favors old infarct. Age indeterminate infarcts within the left parietal frontal lobes are better depicted on the head CT performed earlier today. No acute intracranial hemorrhage, midline shift or mass effect is present. There are postoperative findings within the sinuses. The right internal carotid artery is occluded with distal reconstitution at the level of the right supraclinoid ICA which is diminutive. The right M1, M2, A1 and A2 segments are patent. There is extensive plaque within visualized portions of the left internal carotid artery with multifocal stenoses. There is severe critical stenosis of the left cavernous carotid. The left M1, M2, A1 and A2 segments are patent. No abrupt cut off is identified within the posterior intracranial circulation. There is no intracranial aneurysm. IMPRESSION: 1. Extensive atherosclerotic plaque. Occluded right internal carotid artery with reconstitution at the level of the right supraclinoid ICA which is diminutive. Patent bilateral M1, M2, A1 and A2 branches. 2. Severe/critical stenosis of the left cavernous carotid due to plaque. 3. No intracranial aneurysm. ACT 112: Negative or not required by law. Electronically signed by: Adebayo Metzger M.D. 09/18/2020 7:07 AM Neck CTA 09/18/20 02:43 NECK CTA HISTORY: Stroke symptoms. TECHNIQUE: Multiaxial CT images of the neck were performed following the intravenous administration of contrast to evaluate the major cervical vessels. Maximum intensity projection images were also obtained. All measurements were calculated based on NASCET criteria. A dose lowering technique was utilized adhering to the principles of ALARA. COMPARISON STUDY: None. FINDINGS: The aortic arch is patent. Focal narrowing of approximately 40% within the proximal left subclavian artery due to the atherosclerotic plaque. Mild focal narrowing within the proximal right vertebral artery at the C6-C7 levels. The left vertebral artery is widely patent. There is complete occlusion of the right internal carotid artery. Moderate stenosis of approximately 70% at the takeoff of the left internal carotid artery. There is also 70% focal stenosis at the distal cervical left internal carotid artery. There is also severe/critical stenosis within the left cavernous carotid. This is better appreciated on the same day head CTA. IMPRESSION: 1. Complete occlusion of the right internal carotid artery. 2. Mild narrowing within the proximal right vertebral artery. 3. Focal areas of up to 70% stenosis at the takeoff of the left internal carotid artery and at the distal left cervical internal carotid artery near the skull base. There is also high-grade/critical stenosis within the cavernous segment left internal carotid artery which is better appreciated on the same day head CTA. ACT 112: Negative or not required by law. Electronically signed by: Tavo Fonseca M.D. 09/18/2020 7:22 AM Brain MRI 09/18/20 04:46 Brain MRI WITH AND WITHOUT CONTRAST HISTORY: Right arm numbness and slurred speech. TECHNIQUE: Multiplanar multisequence MRI of the brain was performed both before and after the intravenous administration of contrast. COMPARISON STUDY: Head CT 09/18/2020. FINDINGS: Multiple small scattered foci of restricted diffusion seen within the left posterior frontal lobe and left parietal lobe consistent with acute to subacute embolic infarcts. Small foci of encephalomalacia with surrounding T2 signal within the right posterior frontal lobe and right occipital lobe with equivocal restricted diffusion. This favors an additional subacute to chronic embolic infarcts. The midline structures are intact. Mild atrophy and microvasc ular ischemic changes are noted. Scattered small focal areas of edema at the acute infarcts is also noted. No significant mass effect or midline shift. Focal area of encephalomalacia within the left inferior cerebellar hemisphere consistent with an old infarct. There are also old lacunar infarcts within the bilateral cerebellar hemispheres. Mild mucosal thickening within the left maxillary sinus. The mastoid air cells are clear. Absent flow void within the right internal carotid artery consistent with the known occlusion. Small focal areas of enhancement within the left posterior frontal and parietal lobes correspond to the areas of subacute infarct. IMPRESSION: 1. Multiple acute to subacute embolic infarcts within the left posterior frontal lobe and left parietal lobe corresponding to the CT abnormality. 2. Additional punctate foci of abnormal signal within the right posterior frontal lobe and right occipital lobe favor subacute to chronic embolic infarcts. 3. Old infarcts as described above. 4. Redemonstration of the occluded right internal carotid artery. 5. A 2-3 month brain MRI follow-up recommended to ensure resolution of the foci of enhancement at the expected location of the left subacute embolic infarcts. ACT 112: Negative or not required by law. Electronically signed by: Tavo Fonseca M.D. 09/18/2020 2:44 PM Orbit X-Ray 09/18/20 05:02 ORBIT RADIOGRAPHS 3 VIEWS HISTORY: pre-MRI screening. COMPARISON: CTA of the head September 18, 2020. FINDINGS: There are no radiopaque foreign bodies identified within the orbits. IMPRESSION: No radiopaque foreign bodies identified within the orbits. ACT 112: Negative or not required by law. Electronically signed by: Adebayo Metzger M.D. 09/18/2020 9:02 AM Hospital Course (1) Stroke: John Fabian is a 54-year-old male with only past medical history significant for smoking, EtOH abuse, and methamphetamine use who does not follow regularly with a doctor; who presented for concern of 4 days of weakness of right upper extremity. Also with mild dysarthria Found to have Multiple acute to subacute embolic infarcts within the left posterior frontal lobe and left parietal lobe with additional punctate foci of abnormal signal within the right posterior frontal lobe and right occipital lobe favor subacute to chronic embolic infarcts. Also with old infarcts Not a tPA candidate due to stroke being days old Weakness slightly improved prior to discharge and had no recurrent or new symptoms throughout his stay -with CTA head/neck with occluded right internal carotid artery and moderate 70% left CRISTINA proximally and severe/critical stenosis more distally LICA ECHO normal with neg bubble study Tele with NSR entire stay lipids normal, with new onset DMII with hgbA1C 6.6% Had elevated BPs initially which are now improved -methamphetamine use, smoking as risk factors for CVA as well -Neuro consult recommends ASA, statin, cardiac event monitoring as outpt-event monitor can be ordered by PCP as outpt -Vascular consult appreciated-plan for outpatient evaluation with Neurointer ventional Radiology-Case Manger assisted with referral to [facility] and they will contact patient with appt -stressed importance of cessation of meth, smoking, and EtOH -recommend a 2-3 month brain MRI follow-up recommended to ensure resolution of the foci of enhancement at the expected location of the left subacute embolic infarcts. -BP controlled prior to discharge, no new meds added at this time as BP 130s systolic -OT and PT Rx given for outpatient therapy (2) Smoker: counseled on cessation plans to try nicotine patches (3) Methamphetamine abuse: counseled on cessation (4) ICAO (internal carotid artery occlusion): as above (5) Carotid stenosis, bilateral: as above refer to [facility] (6) Diabetes mellitus: new onset HgbA1C screen here with 6.6% advised cessation of EtOH use and diet changes follow up with PCP (7) Alcohol abuse: drinks 6 beers per day advised cessation no withdrawal signs here (8) DVT prophylaxis: SCDs Dispo-stable for dc to home Total Time Total Time Spent Total Time Spent (In Minutes): 45 min Total Time Includes: Examination of the Patient, Discharge Planning, Medication Reconciliation and Communication With Other Providers (Vascular PA, Neuro) Discharge Plan Discharge Items Patient Disposition: Home - Self-Care Reason For Visit: STROKE Discharge Diagnosis: Acute ischemic stroke Diabetes mellitus Carotid artery stenosis Condition on Discharge: Fair Activity: As commented below Lifting: Gradually increase as tolerated Bathing: No limitations Exercise/Sports: Gradually increase as tolerated Exercise Comment: with outpatient physical and occupational therapy Driving/Machine Use: No driving Non-emergency contact: Primary Care Provider and Neurologist Call non-emergency contact if: you have any medication questions and your symptoms worsen Follow-up/Referrals: [facility] [Outside] ([facility] should be reaching out to you to schedule your appointment with Neurointerventional Radiology. If you don't hear from them within 3-5 days, please call them for appointment. ) PCP,NO [Primary Care Provider] - Diet: Carb Consistent or DM2 and Heart Healthy Addtl Attending Provider Instructions: You were admitted with multiple areas of stroke on the left and right side of your brain. This is due to the severe narrowing or blockage of your carotid artery feeding blood supply to the left side of your brain. It is VERY IMPORTANT that you continue to take the aspirin 81mg and atorvastatin 40mg every day. Also, you should STOP using methamphetamines and drinking alcohol and QUIT smoking cigarettes. All of those things may cause you to have another stroke. You were also found to have diabetes while you were here which is a high blood sugar. If you stop drinking alcohol and cut down on sugary foods, you may be able to improve this. Please follow up with your new primary care doctor within 1-2 weeks. They should call you to schedule this appointment. You will need to follow up with the NEUROINTERVENTIONAL RADIOLOGIST at [facility] as soon as possible after discharge to discuss possible placement of a stent in the clogged artery in your head to prevent future strokes. You were given a prescription for physical and occupational therapy to help you regain function in your right hand. Please call a therapy place of your choice to arrange your first appointment. Risk Factors for Stroke: You can reduce your chances of stroke by working with your medical provider to adopt a healthy lifestyle. Some specific ways to lower your chance of stroke are: * If you are a smoker, now is the time to stop smoking cigarettes * If you are diabetic, improve the control of your blood sugars * Avoid excessive amounts of alcohol * Control high blood pressure * Lose weight if you are overweight * Be sure to lead an active lifestyle * Eat a healthy diet low in salt, cholesterol and fat You should know about other risk factors for stroke that you are unable to control. These include: * Age 55 years or older * Male gender * Certain racial groups: , or / * Family History of Stroke, Mini stroke or Heart Attack * Sickle Cell Disease Follow Up: It is important for you to keep your follow up appointments with your medical provider. Who to Call and When: Medical Emergencies: Call 911 immediately if you experience any of the following warning signs and symptoms of Stroke: * Sudden numbness or weakness of the face, arm or leg, especially on one side of the body * Sudden confusion, trouble speaking or understanding * Sudden trouble seeing in one or both eyes * Sudden trouble walking, dizziness, loss of balance or coordination * Sudden severe headache with no cause Do not delay calling 911 if you experience any warning signs or symptoms of a stroke. Delay in seeking medical attention may affect what treatments can be given to you. . Pending Studies at Discharge: No Stand-Alone Forms: Medications to Prevent Stroke, [facility], Smoking Cessation Medications and DC Order Prescriptions: New nicotine 21 mg/24 hr patch 24 hour 1 patch transdermal DAILY Qty: 14 RF: 0 atorvastatin 40 mg Tablet 40 mg PO QAM Qty: 30 RF: 0 aspirin 81 mg Tablet,Delayed Release (Dr/Ec) 81 mg PO QAM Qty: 30 RF: 0 No Action No Known Home Medications RF: 0 Discharge Orders: Discharge Order (Routine); Ordered 09/19/20 Ordered By: Ness Otoole/Other Patient Handouts: 5 Steps for Eating Healthier, A1C Admission Data Admit Date/Time: 09/18/20 03:50 Attending Provider: Ness Lenz Admit Provider: Duglas Heredia Primary Care Provider: PCP,NO Other Providers: Sagar Looney ; Francisco J Glez ; Louis Barnes Coding Level of Care Code D/C Day Management >30 mins Diagnoses Stroke I63.9 Smoker F17.200 Methamphetamine abuse F15.10 ICAO (internal carotid artery occlusion) I65.21 Laterality: right Carotid stenosis, bilateral I65.23 Diabetes mellitus E11.9 Alcohol abuse F10.10 DVT prophylaxis Z29.9
--- NOTE | 2020-09-19 14:06 | Pharmacy Report ---
Pharmacist Stroke Counseling - Date of Service September 19, 2020 - Scope: Pharmacy has been consulted to provide medication discharge counseling for this patient admitted with ischemic stroke as per the Pharmacist Discharge Counseling for Stroke Patients Protocol. - Medications on Discharge: Home Medications Medication Instructions Recorded Confirmed No Known Home Medications 12/13/19 09/18/20 New Rx's Medication Instructions Recorded aspirin 81 mg PO QAM #30 tab 09/19/20 atorvastatin 40 mg PO QAM #30 tab 09/19/20 nicotine 1 patch TRANSDERMAL DAILY #14 ea 09/19/20 - Action: The above medications, specifically ones for stroke treatment/prophylaxis, have been reviewed in detail with the patient and/or patient safety representative(s) prior to discharge. This includes indication, common adverse reactions, drug interactions, and medication administration. Medication counseling has been employed using the teach-back method to ensure understanding. - Outcome: The patient and/or patient safety representative(s) have demonstrated understanding of the medications. Additional comments: Met with patient at the bedside today. Reviewed new medications to prevent stroke including Aspirin and Atorvastatin. Discussed why they are being used and common side effects in great detail. Reviewed how to use the medications, what to do if doses are missed, common drug interactions, common side effects, what to watch out for while using the medications, and how to store the medications. Pt verbalized understanding and restated the reyes points of each medication. Stressed the importance of quitting smoking and drinking alcohol. Thank you for allowing pharmacy to be involved in the care of this patient. Please call [phone] with any additional questions
== END 2020-09-19 14:13 | disposition home or self-care (01) | DRG 65 ==
LOC: ED 00:53 → SUATTDRO 03:50 → 2S 03:50